=== PATIENT | male | born 1930 | race Caucasian/White ===

== ENCOUNTER 2016-09-30 20:02 | Inpatient (IN) | payer MEDICARE, BC ==
[~2016-09-30] VITALS: Ht 177.8 cm; Wt 80.0 kg
[~2016-09-30 20:02] MED LIST: AMLO-512 PO; ASPI81TA2 PO; CALC-1174 PO; CALC25 PO; CARB-101 PO; CYAN100 PO; DOCU-119 PO; FAMO20 PO; FOLI1 PO; LEVO25TA4 PO; LORA0.5T2 PO; LOSA50TA37 PO; MAGN500C4 PO; MULT-1203 PO; PANT40TA25 PO; RASA1TAB PO; ROSU10 PO; TRIA1TAB93 PO; VITA400T9 PO; ZOLP5 PO; [UNRECOGNIZED DRUG - CODE] PO
[2016-09-30] MEDS ORDERED: CLOT15CR5 TP (20:35)
[2016-09-30] MEDS ORDERED: ATOR20TA86 PO (20:35)
[2016-09-30] MEDS ORDERED: TRAZ-147 PO (20:35)
[2016-09-30] MEDS ORDERED: FURO40 PO (20:35)
[2016-09-30] MEDS ORDERED: SOLI5 PO (20:35)
[2016-09-30] MEDS ORDERED: [UNRECOGNIZED DRUG - CODE] MC (20:35)
[2016-09-30 22:03] LABS: INFLUENZA TYPE B NEGATIVE FOR TYPE B (NEGATIVE)
[2016-09-30] MEDS ORDERED: CefTRIAXone 1 GM/DEXTROSE 50 ML IV ONE (22:45)
[2016-09-30] MEDS ORDERED: OSELTAMIVIR PHOSPHATE 75 MG CAPSULE PO ONE (22:45)
[2016-09-30] MEDS ORDERED: ALBUTEROL SULFATE 5 MG/ML 20 ML NEB SOLN [BULK] NEB ONE (22:45)
[2016-09-30] MEDS ORDERED: IPRATROPIUM BROMIDE 0.5 MG/2.5 ML NEB SOLUTION NEB ONE (22:45)
[2016-09-30 23:32] LABS: BASOPHILS % (AUTO) 0.1 % (0.0-2.0); EOSINOPHILS # (AUTO) 0.04 K/uL (0.00-0.70); EOSINOPHILS % (AUTO) 0.57 % (1.0-6.0); HEMATOCRIT 36.9 % (41-53); HEMOGLOBIN 12.5 g/dL (13.5-17.5); LYMPHOCYTES # (AUTO) 0.5 K/uL (1.0-4.8); LYMPHOCYTES % (AUTO) 7.2 % (22.0-44.0); MEAN CORPUSCULAR HEMOGLOBIN 31.3 pg (26.0-34.0); MEAN CORPUSCULAR HGB CONC 33.9 G/dL (31.0-37.0); MEAN CORPUSCULAR VOLUME 92 fL (80-100); MONOCYTES # (AUTO) 0.6 K/uL (0.1-1.0); MONOCYTES % (AUTO) 8.4 % (2.0-9.0); NEUTROPHILS # (AUTO) 5.5 K/uL (1.8-7.7); NEUTROPHILS % (AUTO) 83.7 % (40.0-70.0); PLATELET COUNT (AUTO) 134 K/uL (150-450); RED CELL DISTRIBUTION WIDTH 16.3 % (11.5-14.5); WHITE BLOOD COUNT (AUTO) 6.6 K/uL (4.5-11.0)
[2016-09-30 23:41] LABS: CALCIUM, TOTAL 7.9 mg/dL (8.8-10.5); CREATININE 1.47 mg/dL (0.60-1.30); POTASSIUM 3.6 mmol/L (3.5-5.1)
[2016-09-30 23:47] LABS: ALBUMIN 3.3 g/dL (3.4-5.0); BILIRUBIN,TOTAL 0.7 mg/dL (0.1-1.0); TOTAL PROTEIN, SERUM 6.7 g/dL (6.4-8.2)
[2016-09-30 23:49] LABS: LACTIC ACID 1.4 mmol/L (0.4-2.0)
[2016-09-30] MEDS: OXYGEN THERAPY IH SCH (23:56)
[2016-10-01] MEDS ORDERED: 0.9% SODIUM CHLORIDE 5 ML NEB SOLUTION NEB ONE (00:03)
[2016-10-01] MEDS ORDERED: ACETAMINOPHEN/CODEINE 300-30 MG TABLET PO ONE (00:30)
[2016-10-01] MEDS ORDERED: IBUPROFEN 600 MG TABLET PO ONE (00:30)
[2016-10-01] MEDS: OXYGEN THERAPY IH SCH ×2 (01:03→20:46)
[2016-10-01] MEDS ORDERED: ALBUTEROL SULFATE 2.5 MG/0.5 ML NEB SOLUTION NEB PRN (05:30)
[2016-10-01] MEDS ORDERED: 0.9% SODIUM CHLORIDE 10 ML SYRINGE IVP PRN (05:30)
[2016-10-01] MEDS ORDERED: IPRATROPIUM BROMIDE 0.5 MG/2.5 ML NEB SOLUTION NEB PRN (05:30)
[2016-10-01] MEDS ORDERED: ONDANSETRON HCL 4 MG/2 ML VIAL IVP PRN (05:30)
[2016-10-01] MEDS ORDERED: OxyCODONE HCL/ACETAMINOPHEN 5-325 MG TABLET PO PRN ×2 (05:30)
[2016-10-01] MEDS: SODIUM CHLORIDE 0.9% 1,000 ML IV SCH ×2 (06:10→17:39)
[2016-10-01] MEDS: ALBUTEROL SULFATE 2.5 MG/0.5 ML NEB SOLUTION NEB SCH ×3 (08:00→20:06)
[2016-10-01] MEDS: IPRATROPIUM BROMIDE 0.5 MG/2.5 ML NEB SOLUTION NEB SCH ×3 (08:00→20:06)
[2016-10-01] MEDS ORDERED: OSELTAMIVIR PHOSPHATE 75 MG CAPSULE PO SCH (09:00)
[2016-10-01] MEDS ORDERED: DOCUSATE SODIUM 100 MG CAPSULE PO SCH (09:00)
[2016-10-01 09:02] VITALS: BP 130/65
[2016-10-01] MEDS: LEVOTHYROXINE SODIUM 25 MCG TABLET PO SCH (10:42)
[2016-10-01] MEDS: CALCITRIOL 0.25 MCG CAPSULE PO SCH (10:42)
[2016-10-01] MEDS: AmLODIPine BESYLATE 10 MG TABLET PO SCH (10:42)
[2016-10-01] MEDS: FOLIC ACID 1 MG TABLET PO SCH (10:42)
[2016-10-01] MEDS: LOSARTAN POTASSIUM 50 MG TABLET PO SCH (10:42)
[2016-10-01] MEDS: ATORVASTATIN CALCIUM 20 MG TABLET PO SCH (10:42)
[2016-10-01] MEDS: DOCUSATE SODIUM 100 MG CAPSULE PO SCH ×2 (10:42→20:45)
[2016-10-01] MEDS: SOLIFENACIN SUCCINATE 5 MG TABLET PO SCH (10:42)
[2016-10-01] MEDS: TraZODone HCL 100 MG TABLET PO SCH (10:42)
[2016-10-01] MEDS: OSELTAMIVIR PHOSPHATE 30 MG CAPSULE PO SCH ×2 (10:42→20:46)
[2016-10-01] MEDS: CARBIDOPA/LEVODOPA 25-100 MG TABLET PO SCH ×4 (10:42→20:45)
[2016-10-01] MEDS: PANTOPRAZOLE SODIUM 40 MG/VIAL IVP SCH (10:43)
[2016-10-01 11:15] VITALS: BP 100/77
[2016-10-01 20:03] VITALS: BP 112/64
[2016-10-01] MEDS: ASPIRIN 81 MG CHEWABLE TABLET PO SCH (20:46)
[2016-10-01] MEDS: CefTRIAXone 1 GM/DEXTROSE 50 ML IV SCH (22:59)
[2016-10-02] VITALS (7 sets, daily range): BP systolic 101–126; BP diastolic 54–80
[2016-10-02] MEDS: ALBUTEROL SULFATE 2.5 MG/0.5 ML NEB SOLUTION NEB SCH ×4 (02:00→19:43)
[2016-10-02] MEDS: IPRATROPIUM BROMIDE 0.5 MG/2.5 ML NEB SOLUTION NEB SCH ×4 (02:00→19:43)
[2016-10-02] MEDS: SODIUM CHLORIDE 0.9% 1,000 ML IV SCH ×2 (06:35→18:11)
[2016-10-02 07:07] LABS: BASOPHILS # (AUTO) 0.03 K/uL (0.00-0.20); BASOPHILS % (AUTO) 0.5 % (0.0-2.0); EOSINOPHILS # (AUTO) 0.05 K/uL (0.00-0.70); EOSINOPHILS % (AUTO) 0.93 % (1.0-6.0); HEMATOCRIT 34.4 % (41-53); HEMOGLOBIN 11.6 g/dL (13.5-17.5); LYMPHOCYTES # (AUTO) 0.4 K/uL (1.0-4.8); LYMPHOCYTES % (AUTO) 7.2 % (22.0-44.0); MEAN CORPUSCULAR HEMOGLOBIN 31.2 pg (26.0-34.0); MEAN CORPUSCULAR HGB CONC 33.9 G/dL (31.0-37.0); MEAN CORPUSCULAR VOLUME 92 fL (80-100); MONOCYTES # (AUTO) 0.5 K/uL (0.1-1.0); NEUTROPHILS # (AUTO) 4.7 K/uL (1.8-7.7); NEUTROPHILS % (AUTO) 82.4 % (40.0-70.0); PLATELET COUNT (AUTO) 129 K/uL (150-450); RED BLOOD CELL COUNT(AUTO) 3.74 MIL/uL (4.50-5.90); RED CELL DISTRIBUTION WIDTH 15.8 % (11.5-14.5); WHITE BLOOD COUNT (AUTO) 5.7 K/uL (4.5-11.0)
[2016-10-02 08:05] LABS: CALCIUM, TOTAL 7.4 mg/dL (8.8-10.5); CREATININE 1.25 mg/dL (0.60-1.30); POTASSIUM 3.3 mmol/L (3.5-5.1)
[2016-10-02] MEDS: OXYGEN THERAPY IH SCH ×2 (08:41→20:37)
[2016-10-02] MEDS: LEVOTHYROXINE SODIUM 25 MCG TABLET PO SCH (09:04)
[2016-10-02] MEDS: OSELTAMIVIR PHOSPHATE 30 MG CAPSULE PO SCH ×2 (09:04→20:37)
[2016-10-02] MEDS: AmLODIPine BESYLATE 10 MG TABLET PO SCH (09:04)
[2016-10-02] MEDS: FOLIC ACID 1 MG TABLET PO SCH (09:04)
[2016-10-02] MEDS: CARBIDOPA/LEVODOPA 25-100 MG TABLET PO SCH ×4 (09:04→20:37)
[2016-10-02] MEDS: CALCITRIOL 0.25 MCG CAPSULE PO SCH (09:04)
[2016-10-02] MEDS: PANTOPRAZOLE SODIUM 40 MG/VIAL IVP SCH (09:05)
[2016-10-02] MEDS: TraZODone HCL 100 MG TABLET PO SCH (09:05)
[2016-10-02] MEDS: DOCUSATE SODIUM 100 MG CAPSULE PO SCH ×2 (09:05→20:37)
[2016-10-02] MEDS: ATORVASTATIN CALCIUM 20 MG TABLET PO SCH (09:05)
[2016-10-02] MEDS: SOLIFENACIN SUCCINATE 5 MG TABLET PO SCH (09:05)
[2016-10-02] MEDS: LOSARTAN POTASSIUM 50 MG TABLET PO SCH (09:05)
[2016-10-02] MEDS ORDERED: POTASSIUM CHLORIDE 20 MEQ ER TABLET PO PRN (11:30)
[2016-10-02] MEDS ORDERED: POTASSIUM CHL 10 MEQ/WATER 50 ML IV PRN (11:30)
[2016-10-02] MEDS: ASPIRIN 81 MG CHEWABLE TABLET PO SCH (20:37)
[2016-10-02] MEDS: CefTRIAXone 1 GM/DEXTROSE 50 ML IV SCH (23:06)
[2016-10-03] MEDS: IPRATROPIUM BROMIDE 0.5 MG/2.5 ML NEB SOLUTION NEB SCH ×4 (02:34→20:05)
[2016-10-03] MEDS: ALBUTEROL SULFATE 2.5 MG/0.5 ML NEB SOLUTION NEB SCH ×4 (02:34→20:05)
[2016-10-03 04:32] VITALS: BP 127/69
[2016-10-03] MEDS: SODIUM CHLORIDE 0.9% 1,000 ML IV SCH ×3 (05:50→18:19)
[2016-10-03 07:03] LABS: ANION GAP 10 mmol/L (8-16); CALCIUM, TOTAL 7.9 mg/dL (8.8-10.5); CARBON DIOXIDE 25 mmol/L (22-29); CHLORIDE 107 mmol/L (98-107); CREATININE 1.14 mg/dL (0.60-1.30); GLOMERULAR FILTR. RATE CALC > 60 mL/min (>60); POTASSIUM 3.8 mmol/L (3.5-5.1); SODIUM SERUM 142 mmol/L (136-145); UREA NITROGEN, BLOOD 19 mg/dL (7-18)
[2016-10-03 07:06] LABS: BASOPHILS # (AUTO) 0.02 K/uL (0.00-0.20); BASOPHILS % (AUTO) 0.5 % (0.0-2.0); EOSINOPHILS # (AUTO) 0.05 K/uL (0.00-0.70); HEMATOCRIT 33.3 % (41-53); HEMOGLOBIN 11.3 g/dL (13.5-17.5); LYMPHOCYTES # (AUTO) 0.5 K/uL (1.0-4.8); LYMPHOCYTES % (AUTO) 12.2 % (22.0-44.0); MEAN CORPUSCULAR HEMOGLOBIN 31.1 pg (26.0-34.0); MEAN CORPUSCULAR VOLUME 92 fL (80-100); MONOCYTES # (AUTO) 0.4 K/uL (0.1-1.0); MONOCYTES % (AUTO) 8.6 % (2.0-9.0); NEUTROPHILS # (AUTO) 3.2 K/uL (1.8-7.7); NEUTROPHILS % (AUTO) 77.7 % (40.0-70.0); PLATELET COUNT (AUTO) 133 K/uL (150-450); RED BLOOD CELL COUNT(AUTO) 3.64 MIL/uL (4.50-5.90); RED CELL DISTRIBUTION WIDTH 16.4 % (11.5-14.5); WHITE BLOOD COUNT (AUTO) 4.2 K/uL (4.5-11.0)
[2016-10-03 07:17] VITALS: BP 135/79
[2016-10-03 07:41] LABS: PROCALCITONIN (PCT) < 0.05 ng/mL (<0.50)
[2016-10-03] MEDS: ATORVASTATIN CALCIUM 20 MG TABLET PO SCH (08:34)
[2016-10-03] MEDS: CARBIDOPA/LEVODOPA 25-100 MG TABLET PO SCH ×4 (08:34→20:58)
[2016-10-03] MEDS: FOLIC ACID 1 MG TABLET PO SCH (08:34)
[2016-10-03] MEDS: LOSARTAN POTASSIUM 50 MG TABLET PO SCH (08:34)
[2016-10-03] MEDS: DOCUSATE SODIUM 100 MG CAPSULE PO SCH ×2 (08:34→20:58)
[2016-10-03] MEDS: PANTOPRAZOLE SODIUM 40 MG/VIAL IVP SCH (08:34)
[2016-10-03] MEDS: CALCITRIOL 0.25 MCG CAPSULE PO SCH (08:35)
[2016-10-03] MEDS: AmLODIPine BESYLATE 10 MG TABLET PO SCH (08:36)
[2016-10-03] MEDS: SOLIFENACIN SUCCINATE 5 MG TABLET PO SCH (08:36)
[2016-10-03] MEDS: TraZODone HCL 100 MG TABLET PO SCH (08:36)
[2016-10-03] MEDS: OSELTAMIVIR PHOSPHATE 30 MG CAPSULE PO SCH ×2 (08:36→20:58)
[2016-10-03] MEDS: LEVOTHYROXINE SODIUM 25 MCG TABLET PO SCH (08:41)
[2016-10-03] MEDS: OXYGEN THERAPY IH SCH ×2 (08:42→20:04)
[2016-10-03 11:55] VITALS: BP 128/69
[2016-10-03 15:18] VITALS: BP 142/77
[2016-10-03 19:56] VITALS: BP 141/77
[2016-10-03] MEDS: ASPIRIN 81 MG CHEWABLE TABLET PO SCH (20:58)
[2016-10-03] MEDS: CefTRIAXone 1 GM/DEXTROSE 50 ML IV SCH (23:13)
[2016-10-03 23:43] VITALS: BP 156/77
[2016-10-04] MEDS: IPRATROPIUM BROMIDE 0.5 MG/2.5 ML NEB SOLUTION NEB SCH ×4 (02:35→20:40)
[2016-10-04] MEDS: ALBUTEROL SULFATE 2.5 MG/0.5 ML NEB SOLUTION NEB SCH ×4 (02:35→20:40)
[2016-10-04 04:10] VITALS: BP 142/79
[2016-10-04] MEDS ORDERED: MORPHINE SULFATE 2 MG/ML SYRINGE IVP PRN (04:15)
[2016-10-04] MEDS: NITROGLYCERIN 0.4 MG SUBLINGUAL TABLET #25 SL PRN ×3 (04:24→04:35)
[2016-10-04] MEDS ORDERED: FUROSEMIDE 40 MG/4 ML VIAL IVP ONE (04:30)
[2016-10-04 07:20] VITALS: BP 143/78
[2016-10-04 07:20] LABS: ANION GAP 11 mmol/L (8-16); CALCIUM, TOTAL 8.3 mg/dL (8.8-10.5); CARBON DIOXIDE 25 mmol/L (22-29); CHLORIDE 104 mmol/L (98-107); CREATININE 1.11 mg/dL (0.60-1.30); GLOMERULAR FILTR. RATE CALC > 60 mL/min (>60); POTASSIUM 3.4 mmol/L (3.5-5.1); SODIUM SERUM 140 mmol/L (136-145); UREA NITROGEN, BLOOD 18 mg/dL (7-18)
[2016-10-04] MEDS: TraZODone HCL 100 MG TABLET PO SCH (09:07)
[2016-10-04] MEDS: LEVOTHYROXINE SODIUM 25 MCG TABLET PO SCH (09:07)
[2016-10-04] MEDS: FOLIC ACID 1 MG TABLET PO SCH (09:07)
[2016-10-04] MEDS: PANTOPRAZOLE SODIUM 40 MG/VIAL IVP SCH (09:07)
[2016-10-04] MEDS: DOCUSATE SODIUM 100 MG CAPSULE PO SCH ×2 (09:07→21:10)
[2016-10-04] MEDS: AmLODIPine BESYLATE 10 MG TABLET PO SCH (09:07)
[2016-10-04] MEDS: CALCITRIOL 0.25 MCG CAPSULE PO SCH (09:07)
[2016-10-04] MEDS: ATORVASTATIN CALCIUM 20 MG TABLET PO SCH (09:07)
[2016-10-04] MEDS: LOSARTAN POTASSIUM 50 MG TABLET PO SCH (09:07)
[2016-10-04] MEDS: CARBIDOPA/LEVODOPA 25-100 MG TABLET PO SCH ×4 (09:08→21:10)
[2016-10-04] MEDS: OSELTAMIVIR PHOSPHATE 30 MG CAPSULE PO SCH ×2 (09:08→21:10)
[2016-10-04] MEDS: SOLIFENACIN SUCCINATE 5 MG TABLET PO SCH (09:08)
[2016-10-04] MEDS: OXYGEN THERAPY IH SCH ×2 (09:10→20:39)
[2016-10-04 12:00] VITALS: BP 138/75
[2016-10-04 15:32] VITALS: BP 110/62
[2016-10-04 19:33] VITALS: BP 113/66
[2016-10-04] MEDS: ASPIRIN 81 MG CHEWABLE TABLET PO SCH (21:10)
[2016-10-04] MEDS: PROMETHAZINE HCL/D-METHORPHAN HB 5 ML ORAL.SYG PO PRN ×2 (21:11→21:18)
[2016-10-04 23:45] VITALS: BP 114/64
[2016-10-05] MEDS: ALBUTEROL SULFATE 2.5 MG/0.5 ML NEB SOLUTION NEB SCH ×3 (03:17→14:36)
[2016-10-05] MEDS: IPRATROPIUM BROMIDE 0.5 MG/2.5 ML NEB SOLUTION NEB SCH ×3 (03:17→14:36)
[2016-10-05 04:47] VITALS: BP 122/67
[2016-10-05 07:31] VITALS: BP 137/68
[2016-10-05] MEDS: CALCITRIOL 0.25 MCG CAPSULE PO SCH (08:20)
[2016-10-05] MEDS: FOLIC ACID 1 MG TABLET PO SCH (08:20)
[2016-10-05] MEDS: CARBIDOPA/LEVODOPA 25-100 MG TABLET PO SCH (08:20)
[2016-10-05] MEDS: OSELTAMIVIR PHOSPHATE 30 MG CAPSULE PO SCH (08:20)
[2016-10-05] MEDS: TraZODone HCL 100 MG TABLET PO SCH (08:20)
[2016-10-05] MEDS: LOSARTAN POTASSIUM 50 MG TABLET PO SCH (08:20)
[2016-10-05] MEDS: ATORVASTATIN CALCIUM 20 MG TABLET PO SCH (08:20)
[2016-10-05] MEDS: DOCUSATE SODIUM 100 MG CAPSULE PO SCH (08:20)
[2016-10-05] MEDS: AmLODIPine BESYLATE 10 MG TABLET PO SCH (08:20)
[2016-10-05] MEDS: LEVOTHYROXINE SODIUM 25 MCG TABLET PO SCH (08:20)
[2016-10-05] MEDS: SOLIFENACIN SUCCINATE 5 MG TABLET PO SCH (08:21)
[2016-10-05] MEDS: OXYGEN THERAPY IH SCH (08:21)
[2016-10-05] MEDS: PANTOPRAZOLE SODIUM 40 MG/VIAL IVP SCH (09:48)
[2016-10-05 11:27] VITALS: BP 122/65
[2016-10-05 15:02] VITALS: BP 128/66
== END 2016-10-05 16:05 | DRG 194 ==
LOC: EMS 20:04 → 6N 10-01 00:05
PROVIDERS: ADMIT Internal Medicine; ATTEND Internal Medicine
DX: J10.1 Influenza due to other identified influenza virus with other respiratory manifestations (principal); E44.0 Moderate protein-calorie malnutrition; E86.0 Dehydration; G20 Parkinson's disease; K21.9 Gastro-esophageal reflux disease without esophagitis; E78.00 Pure hypercholesterolemia, unspecified; E03.9 Hypothyroidism, unspecified; E78.5 Hyperlipidemia, unspecified; I12.9 Hypertensive chronic kidney disease with stage 1 through stage 4 chronic kidney disease, or unspecified chronic kidney disease; I25.10 Atherosclerotic heart disease of native coronary artery without angina pectoris; N18.9 Chronic kidney disease, unspecified; D64.9 Anemia, unspecified; M19.90 Unspecified osteoarthritis, unspecified site; F41.9 Anxiety disorder, unspecified; Z95.1 Presence of aortocoronary bypass graft; Z98.890 Other specified postprocedural states; Z95.0 Presence of cardiac pacemaker; Z79.899 Other long term (current) drug therapy; Z79.82 Long term (current) use of aspirin; Z78.9 Other specified health status; Z68.25 Body mass index [BMI] 25.0-25.9, adult
CPT/HCPCS: 83605; 84132; 84145; 87040; 87804; 92610; 93005; 94640; 96365; 97116; 97163; 97530; 99285; C9113; J0696; J1940; J7030

== ENCOUNTER → 2017-02-10 | Outpatient (CLI) | payer MEDICARE, BC ==
[~2017-02-10] MED LIST changes: +ATOR20TA86 PO; -CALC-1174 PO; +CLOT15CR5 TP; -CYAN100 PO; -FAMO20 PO; +FURO40 PO; -LORA0.5T2 PO; -RASA1TAB PO; -ROSU10 PO; +SOLI5 PO; +TRAZ-147 PO; -TRIA1TAB93 PO; -ZOLP5 PO; +[UNRECOGNIZED DRUG - CODE] MC
== END | disposition home or self-care (01) ==
LOC: RADMN 10:23
PROVIDERS: ATTEND Specialist
DX: G31.9 Degenerative disease of nervous system, unspecified (principal); I65.23 Occlusion and stenosis of bilateral carotid arteries; J32.3 Chronic sphenoidal sinusitis; R90.82 White matter disease, unspecified
CPT/HCPCS: 70450